=== PATIENT | male | born 1945 | race Caucasian/White ===

== ENCOUNTER → 2017-08-26 | Outpatient (CLI) | payer MEDICARE ==
[2017-08-26 13:05] LABS: THYROID STIMULATING HORMONE 1.01 mIU/L (0.358-3.740)
== END | disposition home or self-care (01) ==
LOC: CFH 07:36
PROVIDERS: ATTEND Family Medicine Sports Medicine
DX: I10 Essential (primary) hypertension (principal); R42 Dizziness and giddiness
CPT/HCPCS: 36415; 84439; 84443

== ENCOUNTER 2019-08-07 10:48 | Observation (INO) | payer MEDICARE ==
[~2019-08-07] VITALS: Ht 175.3 cm; Wt 81.2 kg
[~2019-08-07 10:48] MED LIST: ASPI-515 PO; ATOR40TA78 PO; CLOP75TA PO; FAMO20TA7 PO; GABA300C10 PO; LISI-167 PO; METO25TA35 PO; ROPI1TAB PO
--- NOTE | 2019-08-07 11:12 | NUR ---
Pt to 24 from lobby
--- NOTE | 2019-08-07 11:25 | NUR ---
assumed care of pt. pt to ed from gym w/ . was exercising intensely, had chest pain, burning in nature x20 minutes. after 10 minutes took nitro, had immediate relief. never had SOB but reports feeling "off". no n/v/dizziness. no chest pain since. nsr 60s. ekg in triage. labs drawn by lab. awaiting md jimenez. A&Ox4 GCS 15 lungs ctab pt calm, cooperative. call booker in reach.
[2019-08-07] MEDS ORDERED: ASPIRIN 81 MG TABLET CHEW ONE (11:37)
[2019-08-07 11:43] LABS: ALANINE AMINOTRANSFERASE 66 U/L (12-78); ALBUMIN 3.7 g/dL (3.4-5.0); ANION GAP 7 mmol/L (5-15); CALCIUM 9.1 mg/dL (8.5-10.1); CHLORIDE 110 mmol/L (98-107); CREATININE 1.06 mg/dL (0.7-1.3)
[2019-08-07 11:48] LABS: ALKALINE PHOSPHATASE 90 U/L (45-117); BILIRUBIN,TOTAL 0.7 mg/dL (0.2-1.0); TOTAL PROTEIN 7.2 g/dL (6.4-8.2)
[2019-08-07 11:51] LABS: TROPONIN I < 0.015 ng/mL (0.000-0.045)
[2019-08-07] MEDS ORDERED: ASPIRIN 81 MG TABLET CHEW PO ONE (12:00)
[2019-08-07 12:05] LABS: BASOPHILS # (AUTO) 0.04 x10^3/uL (0-0.1); BASOPHILS % (AUTO) 1 % (0-1); EOSINOPHILS # (AUTO) 0.14 x10^3/uL (0-0.4); EOSINOPHILS % (AUTO) 2 % (1-7); LYMPHOCYTES # (AUTO) 1.51 x10^3/uL (1-3.4); LYMPHOCYTES % (AUTO) 22 % (22-44); MD NO; MEAN CORPUSCULAR VOLUME 99.8 fL (81-97); MEAN PLATELET VOLUME 9.7 fL (7.4-10.4); MONOCYTES # (AUTO) 0.54 x10^3/uL (0.2-0.8); MONOCYTES % (AUTO) 8 % (2-9); NEUTROPHILS # (AUTO) 4.49 x10^3/uL (1.8-6.8); NEUTROPHILS % (AUTO) 67 % (42-75); PLATELET COUNT 207 x10^3/uL (130-400); RED BLOOD COUNT 4.56 x10^6/uL (4.38-5.82); RED CELL DISTRIBUTION WIDTH 12.3 % (9.4-14.8)
--- NOTE | 2019-08-07 12:18 | NUR ---
all results back pt up for recheck.
--- NOTE | 2019-08-07 12:45 | NUR ---
pt to be admitted, aware and agrees. denies cp/sob. vss. call booker in reach.
[2019-08-07] MEDS ORDERED: SODIUM CHLORIDE FLUSH 10ML SYR IVF PRN (13:00)
--- NOTE | 2019-08-07 13:48 | NUR ---
[facility] ADMITTING DOCS AT BEDSIDE FOR ADMIT ASSESSMENT. PT GIVEN CARDIAC DIET TRAY, EATING IN BED AT THIS TIME WELL. VSS. CALL LIGHT WITHIN REACH
--- NOTE | 2019-08-07 14:01 | NUR ---
REPORT GIVEN TO SOPHIE RN, PT READY FOR TRANSPORT
[2019-08-07] MEDS ORDERED: ONDANSETRON ODT 4 MG PO PRN (14:30)
[2019-08-07] MEDS ORDERED: ENALAPRILAT 1.25 MG/ML, 2ML IVPush PRN (14:30)
[2019-08-07] MEDS ORDERED: NITROGLYCERIN 0.4 MG BOTTLE (25 TABS) SL PRN (14:30)
[2019-08-07 14:49] VITALS: BP 112/68
[2019-08-07] MEDS ORDERED: GABAPENTIN 300 MG CAPSULE PO SCH (16:00)
[2019-08-07] MEDS ORDERED: RANI150T4 PO (16:42)
[2019-08-07] MEDS ORDERED: ROPINIROLE 2 MG PO SCH (17:00)
[2019-08-07] MEDS: ZANTAC 150 MG PO SCH (17:39)
[2019-08-07] MEDS: METOPROLOL TARTRATE 25 MG TABLET PO SCH (17:39)
[2019-08-07 18:00] LABS: TROPONIN I < 0.015 ng/mL (0.000-0.045)
[2019-08-07 19:00] VITALS: BP 115/70
[2019-08-07] MEDS ORDERED: ENOXAPARIN 40 MG/0.4 ML SQ SCH (19:00)
[2019-08-07] MEDS: ACYCLOVIR 200 MG CAPSULE PO SCH (20:55)
[2019-08-07] MEDS: GABAPENTIN 300 MG CAPSULE PO SCH (20:56)
[2019-08-07] MEDS ORDERED: LISINOPRIL 10 MG TABLET PO SCH (21:00)
[2019-08-07] MEDS ORDERED: FAMOTIDINE 20 MG TABLET PO SCH (21:00)
[2019-08-07] MEDS ORDERED: ATORVASTATIN 40 MG TABLET PO SCH (21:00)
[2019-08-07 23:33] LABS: TROPONIN I < 0.015 ng/mL (0.000-0.045)
[2019-08-08 01:33] VITALS: BP 138/77
[2019-08-08] MEDS: METOPROLOL TARTRATE 25 MG TABLET PO SCH (05:52)
[2019-08-08 06:08] LABS: ALANINE AMINOTRANSFERASE 61 U/L (12-78); ALBUMIN 3.7 g/dL (3.4-5.0); ANION GAP 5 mmol/L (5-15); CHLORIDE 109 mmol/L (98-107)
[2019-08-08 06:11] LABS: ALKALINE PHOSPHATASE 80 U/L (45-117); BILIRUBIN,TOTAL 0.9 mg/dL (0.2-1.0); CREATININE 0.95 mg/dL (0.7-1.3); TOTAL PROTEIN 7.1 g/dL (6.4-8.2)
[2019-08-08 07:43] VITALS: BP 109/69
[2019-08-08] MEDS ORDERED: REGADENOSON 0.4 MG/5 ML SYRINGE ONE (08:40)
[2019-08-08] MEDS ORDERED: CLOPIDOGREL 75 MG TABLET PO SCH (09:00)
[2019-08-08] MEDS ORDERED: ASPIRIN 81 MG TABLET EC PO SCH (09:00)
[2019-08-08] MEDS: ZANTAC 150 MG PO SCH (11:04)
[2019-08-08] MEDS: GABAPENTIN 300 MG CAPSULE PO SCH ×2 (11:04→16:17)
[2019-08-08] MEDS: ACYCLOVIR 200 MG CAPSULE PO SCH (11:05)
[2019-08-08 14:52] VITALS: BP 114/65
== END 2019-08-08 16:45 | disposition home or self-care (01) ==
LOC: ED 12:58 → INTOOBSV 12:59 → EDIP 12:59 → ED 13:16 → 5SO 14:31 → DCLOUNGE 08-08 16:37
PROVIDERS: ADMIT Family Medicine; ATTEND Family Medicine
DX: I25.110 Atherosclerotic heart disease of native coronary artery with unstable angina pectoris (principal); I11.0 Hypertensive heart disease with heart failure; I25.2 Old myocardial infarction; I50.32 Chronic diastolic (congestive) heart failure; E78.5 Hyperlipidemia, unspecified; I73.9 Peripheral vascular disease, unspecified; K21.9 Gastro-esophageal reflux disease without esophagitis; Z79.02 Long term (current) use of antithrombotics/antiplatelets; Z79.82 Long term (current) use of aspirin; Z79.899 Other long term (current) drug therapy; Z87.891 Personal history of nicotine dependence; Z95.5 Presence of coronary angioplasty implant and graft
CPT/HCPCS: 36415; 71045; 78452; 80053; 83735; 84484; 85025; 93005; 93017; 96372; 99284; A9502; C9898; G0378; J1650; J2785